=== PATIENT | female | born 1970 | race Caucasian/White ===

== ENCOUNTER → 2023-09-23 12:24 | Outpatient (REF) | payer OTHER, SELFPAY ==
[2023-09-24 15:55] LABS: Mumps Virus IgG Positive; Rubeola (Measles) IgG Positive; Varicella Zoster IgG (VZV) Positive
[2023-09-24 19:03] LABS: Rubella Positive
[2023-09-25 05:31] LABS: Hepatitis B Surface Antibody Negative
== END ==
LOC: OHS 12:24
PROVIDERS: ATTENDING PHYSICIAN Nurse Practitioner Family
DX: Z23 Encounter for immunization (principal)
CPT/HCPCS: 36415; 86706; 86735; 86762; 86765; 86787